=== PATIENT | female | born 1965 | race Hispanic/Latino ===

== ENCOUNTER 2020-05-01 11:30 | Outpatient (CLI) | payer OTHER | END 2020-05-01 11:31 | disposition home or self-care (01) | LOC: SPVWC 11:30 | PROVIDERS: ATTEND Internal Medicine | DX: Z12.31 Encounter for screening mammogram for malignant neoplasm of breast (principal); Z78.0 Asymptomatic menopausal state | CPT/HCPCS: 77067 ==

== ENCOUNTER 2021-05-21 11:41 | Outpatient (CLI) | payer OTHER | END 2021-05-21 11:42 | disposition home or self-care (01) | LOC: SPVWC 11:41 | PROVIDERS: ATTEND Internal Medicine | DX: Z12.31 Encounter for screening mammogram for malignant neoplasm of breast (principal) | CPT/HCPCS: 77067 ==